=== PATIENT | male | born 1960 | race Caucasian/White ===

== ENCOUNTER 2018-09-22 16:36 | Emergency (ER) | payer OTHER ==
[~2018-09-22] VITALS: Ht 170.2 cm; Wt 95.2 kg
[~2018-09-22 16:36] MED LIST: CEPH500 PO; EZET10 PO; FLUT.05NI; HYDACE5 PO; INDO25 PO; METPRE4DP PO; OXYACE7.5T PO; PROM25 PO; SULTRIDS PO; TRAM50 PO
[2018-09-22 17:49] LABS: BASOPHILS ABSOLUTE AUTO 0.06 K/mm3 (0.00-0.23); BASOPHILS PERCENT AUTO 1 % (0-2); EOSINOPHILS ABSOLUTE AUTO 0.35 K/mm3 (0.00-0.68); EOSINOPHILS PERCENT AUTO 4 % (0-6); Hematocrit 43.1 % (37.0-53.0); Hemoglobin 14.4 g/dL (13.5-17.5); IMMATURE GRAN ABSOLUTE AUTO 0.03 K/mm3 (0.00-0.10); IMMATURE GRAN PERCENT AUTO 0 % (0-1); LYMPHOCYTES ABSOLUTE AUTO 2.06 K/mm3 (0.84-5.20); LYMPHOCYTES PERCENT AUTO 21 % (21-46); MONOCYTES ABSOLUTE AUTO 0.88 K/mm3 (0.16-1.47); MONOCYTES PERCENT AUTO 9 % (4-13); Mean Corpuscular HGB Conc 33.4 g/dL (31.5-36.5); Mean Corpuscular Volume 90 fL (80-100); Mean Platelet Volume 9.8 fL (9.1-12.4); NEUTROPHILS ABSOLUTE AUTO 6.42 K/mm3 (1.96-9.15); NEUTROPHILS PERCENT AUTO 66 % (41-73); Platelet Count 309 K/mm3 (150-400); RDW Coefficient Variation 11.6 % (11.7-14.2); RDW Standard Deviation 38.5 fL (35.1-46.3)
[2018-09-22 18:23] LABS: Alanine Aminotransfer (ALT/SGP 34 U/L (12-78); Albumin, Blood 3.6 g/dL (3.4-5.0); Albumin/Globulin Ratio 0.9 (0.8-1.8); Alk Phos 77 U/L (50-136); Anion Gap 7 mmol/L (6-16); Aspartate Aminotrans (AST/SGOT 21 U/L (12-37); Bilirubin, Total 0.7 mg/dL (0.1-1.0); Blood Urea Nitrogen 19 mg/dL (8-24); Bun/Creatinine Ratio 24.6 (12.0-20.0); CO2, Blood 25 mmol/L (21-32); Calcium, Blood 8.6 mg/dL (8.5-10.1); Chloride, Blood 104 mmol/L (98-108); Creatinine, Blood 0.77 mg/dL (0.60-1.20); Globulin, Blood 3.9 g/dL (2.2-4.0); Glomerular Filtration Rate >60 (60-); Glucose, Blood 84 mg/dL (70-99); Potassium, Blood 3.8 mmol/L (3.5-5.5); Sodium, Blood 136 mmol/L (136-145); Total Protein, Blood 7.5 g/dL (6.4-8.2)
== END 2018-09-22 18:57 | disposition home or self-care (01) ==
LOC: ER 16:36
PROVIDERS: Physician Assistant
DX: K29.70 Gastritis, unspecified, without bleeding (principal); Z88.0 Allergy status to penicillin; Z88.2 Allergy status to sulfonamides; Z88.8 Allergy status to other drugs, medicaments and biological substances; Z79.899 Other long term (current) drug therapy
CPT/HCPCS: 36415; 80053; 83690; 85025; 99284

== ENCOUNTER 2019-08-09 16:39 | Emergency (ER) | payer OTHER ==
[~2019-08-09] VITALS: Ht 175.3 cm; Wt 95.2 kg
[2019-08-09] MEDS ORDERED: KETO10 PO (19:05)
[2019-08-09] MEDS ORDERED: ACETAMINOPHEN500 MG PO (19:05)
[2019-08-09] MEDS ORDERED: Prednisone20 MG PO (19:05)
== END 2019-08-09 19:33 | disposition home or self-care (01) ==
LOC: ER 16:39
DX: M77.11 Lateral epicondylitis, right elbow (principal); M19.021 Primary osteoarthritis, right elbow; Z88.0 Allergy status to penicillin; Z88.2 Allergy status to sulfonamides; Z88.6 Allergy status to analgesic agent
CPT/HCPCS: 73080; 96372; 99283-25; J1885; J7512

== ENCOUNTER 2020-12-09 05:39 | Emergency (ER) | payer OTHER ==
[~2020-12-09] VITALS: Ht 172.7 cm; Wt 96.2 kg
[~2020-12-09 05:39] MED LIST changes: +ACETAMINOPHEN500 MG PO; +KETO10 PO; +Prednisone20 MG PO
[2020-12-09] MEDS ORDERED: MONT10T PO (06:20)
[2020-12-09] MEDS ORDERED: CEPH500 PO (08:02)
== END 2020-12-09 08:11 | disposition home or self-care (01) ==
LOC: ER 05:39
DX: S61.210D Laceration without foreign body of right index finger without damage to nail, subsequent encounter (principal); X58.XXXD Exposure to other specified factors, subsequent encounter
CPT/HCPCS: 11740; 73140; 99283-25; A9270-GY

== ENCOUNTER 2020-12-11 10:56 | Emergency (ER) | payer OTHER ==
[~2020-12-11] VITALS: Ht 175.3 cm; Wt 96.6 kg
[~2020-12-11 10:56] MED LIST changes: +MONT10T PO
== END 2020-12-11 12:03 | disposition home or self-care (01) ==
LOC: ER 10:56
DX: S61.210D Laceration without foreign body of right index finger without damage to nail, subsequent encounter (principal); Z88.0 Allergy status to penicillin; Z88.2 Allergy status to sulfonamides; Z88.6 Allergy status to analgesic agent; X58.XXXD Exposure to other specified factors, subsequent encounter
CPT/HCPCS: 99282

== ENCOUNTER 2020-12-18 09:52 | Emergency (ER) | payer OTHER ==
[~2020-12-18] VITALS: Ht 172.7 cm; Wt 97.5 kg
== END 2020-12-18 10:45 | disposition home or self-care (01) ==
LOC: ER 09:52
DX: S61.214D Laceration without foreign body of right ring finger without damage to nail, subsequent encounter (principal); Z88.0 Allergy status to penicillin; Z88.2 Allergy status to sulfonamides; Z79.899 Other long term (current) drug therapy; X58.XXXD Exposure to other specified factors, subsequent encounter
CPT/HCPCS: 99282

== ENCOUNTER → 2021-12-07 | Outpatient (CLI) | payer OTHER | LOC: LAB SHORT 13:25 → PLD 13:25 | DX: L30.8 Other specified dermatitis (principal) | CPT/HCPCS: 88312 ==

== ENCOUNTER 2023-06-20 16:02 | Emergency (ER) | payer OTHER ==
[~2023-06-20] VITALS: Ht 172.7 cm; Wt 95.2 kg
[2023-06-20 16:09] VITALS: BP 170/137
== END 2023-06-20 17:34 | disposition home or self-care (01) ==
LOC: ER 16:02
DX: M25.512 Pain in left shoulder (principal); R10.32 Left lower quadrant pain; R10.31 Right lower quadrant pain; Z88.0 Allergy status to penicillin; Z88.6 Allergy status to analgesic agent; Z88.2 Allergy status to sulfonamides
CPT/HCPCS: 73030; 96372; 99283-25; J1885

== ENCOUNTER 2023-12-13 05:34 | Day surgery (SDC) | payer OTHER ==
[2023-12-13] VITALS (10 sets, daily range): BP systolic 119–156; BP diastolic 74–90
[~2023-12-13] VITALS: Ht 175.3 cm; Wt 98.7 kg
[~2023-12-13 05:34] MED LIST changes: +Flonase 0.05% N16 GM; +IBUP200 PO; +Singulair4 M1 PO
[2023-12-13] MEDS ORDERED: Lactated Ringer's 1,000 ML IV SCH (06:10)
[2023-12-13] MEDS ORDERED: Bupivacaine 0.5% HCl 5 MG/ML 30MLVIAL ONE (07:10)
[2023-12-13] MEDS ORDERED: CeFAZolin Sodium 2,000 MG in NS 100 ML IV SCH (07:15)
--- NOTE | 2023-12-13 07:15 | NUR ---
CONFIRMED WITH DR YOUSSEF ORDER FOR ANCEF, DESPITE ALLERGY TO PENICILLIN.
[2023-12-13] MEDS ORDERED: Ropivacaine 0.5% HCl/Pf 5 MG/ML 20ML VIAL ONE (07:22)
[2023-12-13] MEDS ORDERED: propofoL 20 ML IV ONE (07:24)
[2023-12-13] MEDS ORDERED: Ketorolac Tromethamine 30mg Vial ONE (07:24)
[2023-12-13] MEDS ORDERED: Ondansetron HCl 2 MG / ML 2ML Vial ONE (07:24)
[2023-12-13] MEDS ORDERED: Dexamethasone Sod Phos 10 MG/ML 1ML VIAL ONE (07:24)
[2023-12-13] MEDS ORDERED: Rocuronium Bromide 10 MG/ML 5ML Injection IV ONE ×2 (07:24→08:21)
[2023-12-13] MEDS ORDERED: FentaNYL Citrate 50 MCG/ML 2 ML Injection ONE (07:25)
--- NOTE | 2023-12-13 07:26 | NUR ---
PATIENT ARRANGED RIDE HOME WITH HIS SIGNIFICANT OTHER, ANA MARÍA.
[2023-12-13] MEDS ORDERED: HYDROmorphone HCl/Pf 1MG SYR ONE (08:17)
--- NOTE | 2023-12-13 08:27 | NUR ---
12/13/23 0827 Justine Arcos RECTUS SHEATH BLOCK (BILATERAL) COMPLETED BY DR. ZARATE AFTER PATIENT WAS INTUBATED.
[2023-12-13] MEDS ORDERED: Sugammadex Sodium 200 MG/2ML SDV (100 MG/ML) ONE (09:13)
[2023-12-13] MEDS ORDERED: OxyCODONE 5 mg/Acetamin 325 mg TABLET PO PRN (09:50)
--- NOTE | 2023-12-13 11:03 | NUR ---
Patient up to Ambulate independently. Gait steady. Discharge instructions reviewed with patient. Patient verbalizes understanding. Copy given to patient to take home. Dressing to procedure site clean, dry, intact with no visible drainage, swelling, erythema or bruising noted. Discharged via wheelchair to private car for ride home.
== END 2023-12-13 11:00 | disposition home or self-care (01) ==
LOC: ORSCMMR 05:34 → ORD 07:30 → ORSCMMR 07:30
PROVIDERS: Surgery
PROC: 8E0W4CZ Robotic Assisted Procedure of Trunk Region, Percutaneous Endoscopic Approach (ICD-10-PCS; principal; 2023-12-13 07:30)
PROC: 0YU64JZ Supplement Left Inguinal Region with Synthetic Substitute, Percutaneous Endoscopic Approach (ICD-10-PCS; principal; 2023-12-13 07:30)
DX: K40.30 Unilateral inguinal hernia, with obstruction, without gangrene, not specified as recurrent (principal)
CPT/HCPCS: A9270; C1781; J0690; J1100; J1170; J1885; J2405; J2704; J2795; J3010; J7120